=== PATIENT | male | born 1960 | race Hispanic/Latino ===

== ENCOUNTER 2016-12-13 07:50 | Day surgery (SDC) | payer OTHER ==
[2016-12-13 09:21] VITALS: BMI 22.1
--- NOTE | 2016-12-13 10:23 | CP.SDSHP ---
Same Day Surgery H & P - History Proposed Procedure: COLONSCOPY Pre-Op Diagnosis: SEE NOTES - Previous Medical/Surgical History Pulmonary: Asthma Neuro: Backaches, Other Misc: Other Pain: 2.Mild Pain - Allergies Allergies: Allergies No Known Allergies Allergy (Verified 09/08/16 22:20) - Physical Exam General Appearance: N Vital Signs: Vital Signs 12/13/16 09:23 Temperature 98.1 F Pulse Rate 68 Respiratory 16 Rate Blood Pressure 111/71 O2 Sat by Pulse 99 Oximetry Mental Status: Alert & Oriented x3 Neuro: Other Heart: Other Lungs: Other GI: WNL - {Optional Preform as Required} Breast: WNL Abdomen: Other Rectal: Other Integument: WNL : WNL Ortho: Other ENT: WNL - Impression Pt. Evaluated Today:Candidate for Anesthesia & Procedure: Yes - Date & Time Time: 10:23 Short Stay Discharge - Short Stay Discharge Admitting Diagnosis/Reason for Visit: COLON POLYP / RECTAL BLEEDING Disposition: HOME/ ROUTINE
[2016-12-13] MEDS ORDERED: Belladonna-Phenobarbital PO STA (10:24)
[2016-12-13] MEDS ORDERED: Lactated Ringer's 500 ML IV ONE ×2 (10:25)
[2016-12-13] MEDS ORDERED: Propofol 10 mg/ml Inj (20 ML) ONE (10:25)
[2016-12-13] MEDS ORDERED: Lidocaine Hydrochloride 5 ML INJ ONE (10:25)
[2016-12-13] MEDS ORDERED: Lactated Ringer's 1,000 ML IV SCH (11:45)
[2016-12-13 12:01] VITALS: TEMP 99
[2016-12-13 12:11] VITALS: BP 106/62; PULSE 78; RESP 18; O2SAT 98
== END 2016-12-13 15:14 | disposition home or self-care (01) ==
LOC: C.ENDO 07:50
PROVIDERS: ATTEND Specialist
DX: D12.4 Benign neoplasm of descending colon (principal); K62.5 Hemorrhage of anus and rectum; K52.9 Noninfective gastroenteritis and colitis, unspecified; K64.8 Other hemorrhoids
CPT/HCPCS: 45388; 88305; J2704; J7120

== ENCOUNTER 2016-12-20 08:10 | Day surgery (SDC) | payer OTHER ==
[2016-12-20] MEDS ORDERED: Propofol 10 mg/ml Inj (20 ML) ONE (11:10)
[2016-12-20] MEDS ORDERED: Lidocaine Hydrochloride 10 ML INJ ONE (11:10)
--- NOTE | 2016-12-20 11:12 | CP.SDSHP ---
Same Day Surgery H & P - History Proposed Procedure: EGD Pre-Op Diagnosis: SEE NOTES - Previous Medical/Surgical History Pulmonary: Asthma Neuro: Backaches, Other - Allergies Allergies: Allergies No Known Allergies Allergy (Verified 12/20/16 09:06) - Physical Exam General Appearance: N Vital Signs: Vital Signs 12/20/16 08:30 Temperature 98.6 F Pulse Rate 79 Respiratory 19 Rate Blood Pressure 115/77 O2 Sat by Pulse 97 Oximetry Mental Status: Alert & Oriented x3 Neuro: Other Heart: WNL Lungs: Other GI: WNL - {Optional Preform as Required} Breast: WNL Abdomen: Other Rectal: Other Integument: WNL : WNL Ortho: Other ENT: WNL - Impression Pt. Evaluated Today:Candidate for Anesthesia & Procedure: Yes - Date & Time Time: 11:12 Short Stay Discharge - Short Stay Discharge Admitting Diagnosis/Reason for Visit: DYSPEPSIA Disposition: HOME/ ROUTINE
[2016-12-20] MEDS ORDERED: Belladonna-Phenobarbital PO STA (11:13)
[2016-12-20 12:08] VITALS: TEMP 98
[2016-12-20 12:10] VITALS: RESP 20
[2016-12-20 12:14] VITALS: O2SAT 98
[2016-12-20 13:49] VITALS: BP 125/70; PULSE 61
[2016-12-20] MEDS ORDERED: Peg-Electrolyte Oral Soln 4L (Golytely) PO ONE (14:00)
[2016-12-20] MEDS ORDERED: Bisacodyl 5mg EC Tab PO ONE (17:00)
== END 2016-12-20 13:45 | disposition home or self-care (01) ==
LOC: C.ENDO 08:10
PROVIDERS: ATTEND Specialist
DX: K21.0 Gastro-esophageal reflux disease with esophagitis (principal); K29.00 Acute gastritis without bleeding; K44.9 Diaphragmatic hernia without obstruction or gangrene; K29.50 Unspecified chronic gastritis without bleeding; K30 Functional dyspepsia
CPT/HCPCS: 43239; 88305; 88342; J2704